=== PATIENT | female | born 1935 ===

== ENCOUNTER 2017-04-16 07:54 | Day surgery (SDC) | payer MEDICARE ==
[2017-04-07 15:07] VITALS: BMI 29.4
[2017-04-16 08:43] VITALS: O2SAT 99
[2017-04-16] MEDS ORDERED: Propofol 10 mg/ml Inj (20 ML) ONE (09:01)
[2017-04-16 09:11] LABS: INR 1.09 (0.93-1.08); PARTIAL THROMBOPLASTIN TIME 27.3 Seconds (23.7-30.8)
[2017-04-16] MEDS ORDERED: Sodium Chloride 0.9% 1,000 ML IV SCH (09:30)
[2017-04-16 11:05] VITALS: RESP 16
[2017-04-16 11:06] VITALS: BP 148/75; PULSE 92; TEMP 98.1
== END 2017-04-16 11:23 | disposition home or self-care (01) ==
LOC: ENDO 07:54
PROVIDERS: ATTEND Specialist
DX: Z12.11 Encounter for screening for malignant neoplasm of colon (principal); K57.30 Diverticulosis of large intestine without perforation or abscess without bleeding; K64.8 Other hemorrhoids; D17.5 Benign lipomatous neoplasm of intra-abdominal organs; E11.9 Type 2 diabetes mellitus without complications; I48.91 Unspecified atrial fibrillation; I10 Essential (primary) hypertension
CPT/HCPCS: 36415; 45378; 85610; 85730; J2001; J2704; J7040 ×2